=== PATIENT | female | born 1985 | race Caucasian/White ===

== ENCOUNTER 2021-01-13 17:45 | Emergency (ER) | payer BC, OTHER ==
[~2021-01-13] VITALS: Ht 160 cm; Wt 61.7 kg
[2021-01-13 18:41] VITALS: BP 144/103
[2021-01-13] MEDS ORDERED: SUMAtriptan SUCCINATE 6 MG/0.5 ML VL SC ONE (19:15)
[2021-01-13] MEDS ORDERED: SODIUM CHLORIDE 0.9% 1,000 ML IV ONE (19:45)
== END 2021-01-13 21:30 | disposition home or self-care (01) ==
LOC: ER 17:46
DX: G43.909 Migraine, unspecified, not intractable, without status migrainosus (principal); M54.2 Cervicalgia; E86.0 Dehydration
CPT/HCPCS: 70450; 96360; 96372; 99284; J3030